=== PATIENT | female | born 1980 | race Caucasian/White ===

== ENCOUNTER 2016-06-19 23:43 | Emergency (ER) | payer OTHER ==
[~2016-06-19] VITALS: Ht 165.1 cm; Wt 99.8 kg
[~2016-06-19 23:43] MED LIST: AMBIEN10 M1 PO; AMBIEN10 MG PO; AMBIEN5 MG; ERY PO; FIORICET 325 MG1 TA1 PO; SUDAFED60 MG PO; VALIUM5 M1; XANAX0.5 M1 PO; [UNRECOGNIZED DRUG - REMARK]
[2016-06-19 23:49] VITALS: BP 125/81
--- NOTE | 2016-06-20 00:13 | NUR ---
Patient to OF2
--- NOTE | 2016-06-20 00:14 | NUR ---
PATIENT PRESENTS TO ED WITH NUMBNESS AND TWITCHING X 1 DAY . PT STATES SHE HAS HX OF MIGRAINE AND TAKE TOPAMAX FOR 100MG AND SPEECH IMPEDIMENT. PT DENIES N/V/D; SKIN IS PINK/WARM/DRY; AAOX4 WITH EVEN AND STEADY GAIT; LUNGS CLEAR BL; HR EVEN AND REGULAR; PT DENIES ANY FEVER, CP, SOB, OR COUGH AT THIS TIME; PATIENT STATES PAIN OF 9/10 AT THIS TIME; VSS; PATIENT POSITIONED FOR COMFORT; HOB ELEVATED; BEDRAILS UP X2; BED DOWN. ER MD MADE AWARE OF PT STATUS.
--- NOTE | 2016-06-20 00:25 | NUR ---
Patient being evaluated by physician DR CUNNINGHAM at bedside.
[2016-06-20 01:21] VITALS: BP 117/79
--- NOTE | 2016-06-20 01:21 | NUR ---
Patient discharged with v/s stable. Written and verbal after care instructions given and explained. Patient verbalized understanding. Ambulatory with steady gait. All questions addressed prior to discharge. Advised to follow up with PMD.
== END 2016-06-20 01:21 | disposition home or self-care (01) ==
LOC: MED 23:43
DX: F41.9 Anxiety disorder, unspecified (principal); G43.909 Migraine, unspecified, not intractable, without status migrainosus; Z88.5 Allergy status to narcotic agent

== ENCOUNTER 2017-03-06 08:57 | Emergency (ER) | payer OTHER ==
[~2017-03-06] VITALS: Ht 165.1 cm; Wt 99.6 kg
[~2017-03-06 08:57] MED LIST changes: -AMBIEN10 M1 PO; -AMBIEN10 MG PO; -AMBIEN5 MG; -ERY PO; -FIORICET 325 MG1 TA1 PO; -SUDAFED60 MG PO; -VALIUM5 M1; -XANAX0.5 M1 PO; +ZOLP10TA1 PO
[2017-03-06 09:19] VITALS: BP 124/92
--- NOTE | 2017-03-06 09:27 | NUR ---
PATIENT TO BED 12 AT THIS TIME.
--- NOTE | 2017-03-06 09:30 | NUR ---
36/F REFERRED BY PMD WITH C/O BODY/BACK ACHE, HEADACHE 10/10, PRODUCTIVE COUGH GREEN PLEGM X 4 DAYS WITH VOMITING TODAY X 1; HX; HEART MURMUR, MIGRAINE, R ANKLE SURGERY , C SECTION X 2. SKIN IS PINK/WARM/DRY; AAOX4 WITH EVEN AND STEADY GAIT; LUNGS CONGESTED BL; PATIENT STATES PAIN OF 10/10 AT THIS TIME; PATIENT POSITIONED FOR COMFORT; HOB ELEVATED; BEDRAILS UP X2; BED DOWN. ER MD MADE AWARE OF PT STATUS.
--- NOTE | 2017-03-06 09:30 | NUR ---
Note lori in EDM - 03/06/17 at 0959 by MED1 36/F REFERRED BY PMD WITH C/O BODY/BACK ACHE, HEADACHE 12/17, PRODUCTIVE COUGH GREEN PLEGM X 4 DAYS WITH VOMITING TODAY X 1; EPIDURAL 15 YEARS AGO.HX; HEART MURMUR, MIGRAINE
--- NOTE | 2017-03-06 09:46 | NUR ---
Patient being evaluated by DR MCCABE at bedside.
--- NOTE | 2017-03-06 10:09 | NUR ---
Patient discharged with v/s stable. Written and verbal after care instructions given and explained. Patient alert, oriented and verbalized understanding of instructions. Ambulatory with steady gait. All questions addressed prior to discharge. ID band removed. Patient advised to follow up with PMD. Rx of PROMETHAZINE & TRAMADOL given. Patient educated on indication of medication including possible reaction and side effects. Opportunity to ask questions provided and answered.
[2017-03-06 10:10] VITALS: BP 119/87
== END 2017-03-06 10:09 | disposition home or self-care (01) ==
LOC: MED 08:57
DX: J06.9 Acute upper respiratory infection, unspecified (principal); R03.0 Elevated blood-pressure reading, without diagnosis of hypertension; Z88.5 Allergy status to narcotic agent
CPT/HCPCS: 99283

== ENCOUNTER 2018-05-05 14:39 | Emergency (ER) | payer OTHER ==
[~2018-05-05] VITALS: Ht 165.1 cm; Wt 102.1 kg
[2018-05-05 15:13] VITALS: BP 126/85
--- NOTE | 2018-05-05 15:51 | NUR ---
PATIENT PRESENTS TO ED WITH C/O COUGH >1 MONTH; SEEN BY PMD AND RX ANTIHISTAMINE, SUDAFED PT ADDS INTERMITTENT SHARP ANTERIOR CHEST WALL PAIN RADIATING TO RIGHT UPPER BACK UNPROVOKED LASTING FOR MINUTES SELF RELIEVED >1 MONTH DENIES SOB, DENIES PEDAL EDEMA DENIES N/V/D; SKIN IS PINK/WARM/DRY; AAOX4 WITH EVEN AND STEADY GAIT; LUNGS CLEAR BL; HR EVEN AND REGULAR; PT DENIES ANY FEVER, SOB AT THIS TIME; PATIENT STATES PAIN OF 8/10 AT THIS TIME; VSS; PATIENT POSITIONED FOR COMFORT; HOB ELEVATED; BEDRAILS UP X2; BED DOWN. ER MD MADE AWARE OF PT STATUS.
[2018-05-05] MEDS ORDERED: KETOROLAC 30 MG/ML VIAL IM ONE (16:30)
[2018-05-05] MEDS ORDERED: DEXAMETHASONE 10 MG/ML VIAL IM ONE (16:30)
--- NOTE | 2018-05-05 17:07 | NUR ---
Patient discharged with v/s stable. Written and verbal after care instructions given and explained. Patient alert, oriented and verbalized understanding of instructions. Ambulatory with steady gait. All questions addressed prior to discharge. ID band removed. Patient advised to follow up with PMD. Rx of albuterol/naproxen/promethazine given. Patient educated on indication of medication including possible reaction and side effects. Opportunity to ask questions provided and answered.
[2018-05-05 17:08] VITALS: BP 127/81
== END 2018-05-05 17:07 | disposition home or self-care (01) ==
LOC: MED 14:39
DX: M94.0 Chondrocostal junction syndrome [Tietze] (principal); J40 Bronchitis, not specified as acute or chronic; F41.9 Anxiety disorder, unspecified; Z88.5 Allergy status to narcotic agent; Z79.899 Other long term (current) drug therapy
CPT/HCPCS: 71045; 81002; 81025; 93005; 96372; 99283; J1100; J1885; Q0092

== ENCOUNTER 2018-06-02 12:43 | Emergency (ER) | payer OTHER ==
[~2018-06-02] VITALS: Ht 165.1 cm; Wt 99.8 kg
[2018-06-02 12:46] VITALS: BP 115/72
--- NOTE | 2018-06-02 12:54 | NUR ---
PT AMB TO BED 3
--- NOTE | 2018-06-02 13:02 | NUR ---
PT PRESENTED TO THE ED WITH THE CHIEF C/O BLISTER AND REDNESS ON LEFT LOWER LEG S/P BUG BITE FOR 4 DAYS. REDNESS NOTED ON SITE, WARM AND HARD TO TOUCH. NO DRAINAGE. PT DENIES ANY FEVER. DENIES ANY OTHER PROBLEM AT THIS TIME. STATES FEELING OF DISCOMFORT ON LEFT LOWER LEG. DENIES PAIN AT THIS TIME. ER MD AWARE.
[2018-06-02 13:41] VITALS: BP 110/72
== END 2018-06-02 13:43 | disposition home or self-care (01) ==
LOC: MED 12:43
DX: R21 Rash and other nonspecific skin eruption (principal); Z88.5 Allergy status to narcotic agent; Z79.899 Other long term (current) drug therapy
CPT/HCPCS: 99281

== ENCOUNTER 2018-09-05 09:36 | Emergency (ER) | payer OTHER ==
[~2018-09-05] VITALS: Ht 165.1 cm; Wt 85.4 kg
[2018-09-05 09:40] VITALS: BP 132/92
--- NOTE | 2018-09-05 09:45 | NUR ---
PATIENT AMBULATED TO BED 9.
--- NOTE | 2018-09-05 09:55 | NUR ---
PT BIB SELF FOR RASH ON LT HAND AND EYELIDS SINCE FRIDAY. PT REPORTS SHARP PAIN IN RT EYELID AT 9/10 THAT INCREASES WITH ITCHING. PT DENIES N/V/D OR FEVER. DENIES USING NEW DETERGENTS, NEW FOODS OR BEING AROUND ANY UNUASUAL PLANTS. NO RESPIRATORY DISTRESS, AIRWAY PATENT, RR EVEN, NON-LABORED, AND BREATH SOUNDS CLEAR. PT SAW PCP AND RECIEVED HYDROCORTISONE OINTMENT AND NEOMYC-POLYMODEC. VSS. ER TO SEE PT. MEDHX:HEART MURMOR
[2018-09-05 11:20] VITALS: BP 132/92
== END 2018-09-05 11:02 | disposition home or self-care (01) ==
LOC: MED 09:36
DX: R21 Rash and other nonspecific skin eruption (principal)
CPT/HCPCS: 99281

== ENCOUNTER 2018-11-30 18:19 | Emergency (ER) | payer OTHER ==
--- NOTE | 2018-11-30 18:38 | NUR ---
CALLED PT NAME IN ER LOBBY AND OUTSIDE, NO ANSWER
--- NOTE | 2018-11-30 18:46 | NUR ---
CALLED PT NAME IN LOBBY NO ANSWER
--- NOTE | 2018-11-30 18:54 | NUR ---
CALLED PT NAME IN LOBBY NO ANSWER
--- NOTE | 2018-11-30 18:56 | NUR ---
PATIENT LEFT WITHOUT BEING SEEN BY DR. BROOKS. NO FURTHER CARE PROVIDED FOR PATIENT.
== END 2018-11-30 18:36 | disposition left against medical advice (07) ==
LOC: MED 18:19
DX: Z53.21 Procedure and treatment not carried out due to patient leaving prior to being seen by health care provider (principal)

== ENCOUNTER 2019-10-30 13:58 | Emergency (ER) | payer SELFPAY ==
[~2019-10-30] VITALS: Ht 165.1 cm; Wt 78.5 kg
[2019-10-30 14:23] VITALS: BP 133/86
--- NOTE | 2019-10-30 14:33 | NUR ---
PT AMB TO BED 8.
--- NOTE | 2019-10-30 14:33 | NUR ---
DR ARREAGA AT BEDSIDE EVALUATING PT.
[2019-10-30] MEDS ORDERED: KETOROLAC 30 MG/ML VIAL IM ONE (14:35)
[2019-10-30] MEDS ORDERED: SUMAtriptan succinate 25 MG TAB PO ONE (14:35)
--- NOTE | 2019-10-30 14:50 | NUR ---
C/O NAUSEA, HEADACHE X 1 WEEK.PT AOX4 AFIBRILE , AMBULATORY WITH STEADY GAIT , PINK PALPEBRAL , ANICTERIC SCLERA , SCE , FLAT SOFT ABDOMEN . MED HX: MIGRAINE, GASTRIC BY PASS, LEG LEG SURGERY, C SECTION
[2019-10-30] MEDS ORDERED: MORPHINE SULFATE 4 MG/ML SYR IVP ONE (15:20)
[2019-10-30] MEDS ORDERED: NACL 0.9% 1,000 ML IV ONE (15:20)
--- NOTE | 2019-10-30 16:06 | NUR ---
dr pinto informed and aware regarding pt c/o left facial tingling sensation.
--- NOTE | 2019-10-30 16:20 | NUR ---
pt to ct scan via wheelchair.
--- NOTE | 2019-10-30 16:35 | NUR ---
pt back from ct scan via wheelchair
--- NOTE | 2019-10-30 16:45 | NUR ---
dr pinto at bedside reevaluating pt.
[2019-10-30 16:53] VITALS: BP 110/74
--- NOTE | 2019-10-30 16:54 | NUR ---
Patient discharged with v/s stable. Written and verbal after care instructions given and explained regarding migraine headache. Patient alert, oriented and verbalized understanding of instructions. Ambulatory with steady gait. All questions addressed prior to discharge. ID band removed. Patient advised to follow up with PMD. Rx of ibuprfen and imitrex given. Patient educated on indication of medication including possible reaction and side effects. Opportunity to ask questions provided and answered.
== END 2019-10-30 16:54 | disposition home or self-care (01) ==
LOC: MED 13:58
DX: G43.909 Migraine, unspecified, not intractable, without status migrainosus (principal); I51.89 Other ill-defined heart diseases; Z88.6 Allergy status to analgesic agent; Z98.84 Bariatric surgery status; Z79.899 Other long term (current) drug therapy
CPT/HCPCS: 70450; 96361; 96372; 96374; 99284; J1885; J2270; J7030

== ENCOUNTER 2020-03-11 15:08 | Emergency (ER) | payer MEDICAID, OTHER ==
[~2020-03-11] VITALS: Ht 165.1 cm; Wt 59.0 kg
[2020-03-11 15:10] VITALS: BP 120/86
--- NOTE | 2020-03-11 15:20 | NUR ---
39 Y/O FEMALE BIB SELF, PATIENT STATES A FEW HOURS AGO SHE GOT A SUDDEN SHARP PAIN IN HER LEFT ABDOMEN THAT RADIATED TO HER LEFT CHEST/SHOULDER/FACE. STATES SHE IS FEELING TINGLING ON THE LEFT SIDE OF HER FACE. PAIN IS 9/10. DENIES ANY N/V/D. DENIES ANY SOB, COUGH OR FLU LIKE SYMPTOMS PATIENT STATES SHE RECENTLY FOUND OUT SHE HAD TWO HEART MURMURS. NO PMH ALLERGIES: CODEINE
[2020-03-11] MEDS ORDERED: ALUMINUM HYD/MAG/SIMETHICONE 30 ML UDC PO ONE (15:25)
[2020-03-11 15:45] LABS: BASOPHILS # (AUTO) 0.1 K/uL (0.00-0.22); BASOPHILS % (AUTO) 0.9 % (0.0-2.0); EOSINOPHILS # (AUTO) 0.2 K/uL (0-0.4); EOSINOPHILS % (AUTO) 1.9 % (0.0-4.0); HEMATOCRIT 41.7 % (36-48); HEMOGLOBIN 14.5 g/dL (12.0-16.0); LYMPHOCYTES # (AUTO) 2.4 K/uL (2.5-16.5); LYMPHOCYTES % (AUTO) 26.5 % (20.5-51.1); MEAN CORPUSCULAR HEMOGLOBIN 30 pg (27-31); MEAN CORPUSCULAR HGB CONC 35 g/dL (33-37); MEAN CORPUSCULAR VOLUME 86.3 fL (80-94); MONOCYTES # (AUTO) 0.7 K/uL (0.8-1.0); MONOCYTES % (AUTO) 8.1 % (1.7-9.3); NEUTROPHILS # (AUTO) 5.7 K/uL (1.8-7.7); NEUTROPHILS % (AUTO) 62.6 % (42.2-75.2); PLATELET COUNT (AUTO) 245 K/uL (140-450); RED BLOOD CELL COUNT(AUTO) 4.83 MIL/uL (4.20-5.40); RED CELL DISTRIBUTION WIDTH 13.3 % (11.6-13.7); WHITE BLOOD COUNT (AUTO) 9.1 K/uL (4.8-10.8)
--- NOTE | 2020-03-11 15:47 | NUR ---
PT TAKEN TO XRAY VIA WHEELCHAIR
[2020-03-11 16:43] LABS: ANION GAP 15.1 (8-16); CARBON DIOXIDE 25.7 mmol/L (21-32); CREATININE 0.8 mg/dL (0.6-1.3); POTASSIUM 3.8 mmol/L (3.5-5.1)
[2020-03-11 17:07] VITALS: BP 120/86
[2020-03-11 17:20] LABS: BILIRUBIN,DIRECT 0.1 mg/dL (0.0-0.3); TOTAL BILIRUBIN 0.3 mg/dL (0.0-1.0)
== END 2020-03-11 17:07 | disposition home or self-care (01) ==
LOC: MED 15:08
DX: R10.32 Left lower quadrant pain (principal); R53.83 Other fatigue; R20.0 Anesthesia of skin
CPT/HCPCS: 36415; 71045; 80048; 80076; 81002; 81025; 83690; 84484; 85025; 93005; 99285

== ENCOUNTER 2020-09-04 11:28 | Emergency (ER) | payer OTHER ==
[~2020-09-04] VITALS: Ht 165.1 cm; Wt 68.0 kg
[2020-09-04 11:47] VITALS: BP 117/78
--- NOTE | 2020-09-04 11:51 | NUR ---
PT TO AWAIT IN LOBBY
--- NOTE | 2020-09-04 13:00 | NUR ---
Patient ambulated to bed 2. RN evaluating the patient at bedside.
--- NOTE | 2020-09-04 13:01 | NUR ---
40 y/o F with c/c headache x 2 days. Patient states hx of migraines, acute onset yesterday at 5PM that worsen today. Patient reports Motrin 800mg with minor relief. States associated lightheadness, dizziness, chills x 1 day. Patient states headache 10/10, bilateral temporal, throbbing/constant, radiating down head. Patient denies fever, N/V, dysuria, fever, back pain, SOB. LMP: 01/2021; depo shot. VSS. Bed locked in lowest position, side rails x 1. Lights dimmed for comfort. PMH: Migraines, insomnia Meds: Denies Allergies: Codeine Sx: Gastric sleeve 2 years ago
--- NOTE | 2020-09-04 13:01 | NUR ---
APOORVA Cagle is evaluating the patient at bedside.
[2020-09-04] MEDS ORDERED: NACL 0.9% 1,000 ML IV ONE (13:10)
[2020-09-04] MEDS ORDERED: diphenhydrAMINE 50 MG/ML VIAL IVP ONE (13:10)
[2020-09-04] MEDS ORDERED: METOCLOPRAMIDE 10 MG/2 ML INJ VIAL IVP ONE (13:10)
[2020-09-04] MEDS ORDERED: KETOROLAC 30 MG/ML VIAL IVP ONE (13:10)
--- NOTE | 2020-09-04 13:25 | NUR ---
Blood sample collected, handed to CPT Divina at ER Bedside.
[2020-09-04 13:40] LABS: BASOPHILS # (AUTO) 0.1 K/uL (0.00-0.22); BASOPHILS % (AUTO) 0.8 % (0.0-2.0); EOSINOPHILS # (AUTO) 0.1 K/uL (0-0.4); EOSINOPHILS % (AUTO) 0.9 % (0.0-4.0); HEMATOCRIT 43.4 % (36-48); HEMOGLOBIN 15.2 g/dL (12.0-16.0); LYMPHOCYTES # (AUTO) 2.5 K/uL (2.5-16.5); LYMPHOCYTES % (AUTO) 29.1 % (20.5-51.1); MEAN CORPUSCULAR HEMOGLOBIN 31 pg (27-31); MEAN CORPUSCULAR HGB CONC 35 g/dL (33-37); MEAN CORPUSCULAR VOLUME 87.4 fL (80-94); MONOCYTES # (AUTO) 0.7 K/uL (0.8-1.0); MONOCYTES % (AUTO) 7.8 % (1.7-9.3); NEUTROPHILS # (AUTO) 5.3 K/uL (1.8-7.7); NEUTROPHILS % (AUTO) 61.4 % (42.2-75.2); PLATELET COUNT (AUTO) 242 K/uL (140-450); RED BLOOD CELL COUNT(AUTO) 4.97 MIL/uL (4.20-5.40); RED CELL DISTRIBUTION WIDTH 12.8 % (11.6-13.7); WHITE BLOOD COUNT (AUTO) 8.7 K/uL (4.8-10.8)
--- NOTE | 2020-09-04 13:46 | NUR ---
Pt states minor relief to pain, rates 7/10. Denies nausea or dizziness; states positive relief after Reglan and Benadryl IVP.
[2020-09-04 14:02] LABS: ANION GAP 13.6 (8-16); CREATININE 0.7 mg/dL (0.6-1.3); POTASSIUM 3.6 mmol/L (3.5-5.1); TOTAL BILIRUBIN 0.5 mg/dL (0.0-1.0)
[2020-09-04] MEDS ORDERED: CEPH-588 PO (14:11)
[2020-09-04] MEDS ORDERED: NAPR-54 PO (14:11)
[2020-09-04 14:35] VITALS: BP 117/78
--- NOTE | 2020-09-04 14:35 | NUR ---
Patient discharged with v/s stable. Written and verbal after care instructions given and explained. Patient alert, oriented and verbalized understanding of instructions. Ambulatory with steady gait. All questions addressed prior to discharge. ID band removed. IV Discontiued. Patient advised to follow up with PMD. Rx of KEFLEX AND NAPROSYN given. Patient educated on indication of medication including possible reaction and side effects. Opportunity to ask questions provided and answered.
== END 2020-09-04 14:35 | disposition home or self-care (01) ==
LOC: MED 11:28
DX: G43.909 Migraine, unspecified, not intractable, without status migrainosus (principal); N39.0 Urinary tract infection, site not specified; Z88.5 Allergy status to narcotic agent; Z79.899 Other long term (current) drug therapy; Z98.84 Bariatric surgery status
CPT/HCPCS: 36415; 80053; 81002; 81025; 85025; 96361; 96374; 96375; 99284; J1200; J1885; J2765; J7030

== ENCOUNTER 2021-05-09 16:53 | Emergency (ER) | payer OTHER ==
[~2021-05-09] VITALS: Ht 165.1 cm; Wt 63.0 kg
[~2021-05-09 16:53] MED LIST changes: +CEPH-588 PO; +NAPR-54 PO
[2021-05-09 17:01] VITALS: BP 137/77
--- NOTE | 2021-05-09 17:30 | NUR ---
PATIENT AMBULATED TO BED 8
--- NOTE | 2021-05-09 17:33 | NUR ---
PATIENT PLACED ON WHITE WASHER
--- NOTE | 2021-05-09 17:38 | NUR ---
IV 18G R AC ESTABLISHED, COLLECTED BLOOD AND AMBULATED TO LAB
--- NOTE | 2021-05-09 17:38 | NUR ---
40/F BIB SELF, AA&OX4, AMBULATORY W/ STEADY GAIT. PRESENTS TO ED WITH C/O INTERMITTENT CHEST PAIN 9/10 AND SOB X2 WEEKS. PAIN RADIATES FROM CHEST TO R SIDE OF NECK. DENIES USE OF MEDICATION FOR PAIN RELIEF, -N/V/D, FEVER, RECENT EXPOSURE TO COVID. PATIENT REPORTS A FALL LAST WEEK, DENIES TRAUMA OR INJURY. PATIENT REPORTS DRINKING APPROX. 6 CAFFEINATED DRINKS WEEKLY, NO CAFFEINE SENSITIVITY NOTED. PMH: HEART MURMUR, PREVIOUS DIAGNOSIS OF PNEUMONIA AND BRONCHITIS MEDS: DENIES ALLERGIES: CODEINE
--- NOTE | 2021-05-09 17:40 | NUR ---
RADIOLOGY AT BEDSIDE
[2021-05-09 17:54] LABS: BASOPHILS # (AUTO) 0.1 K/uL (0.00-0.22); BASOPHILS % (AUTO) 0.6 % (0.0-2.0); EOSINOPHILS # (AUTO) 0.1 K/uL (0-0.4); EOSINOPHILS % (AUTO) 0.9 % (0.0-4.0); HEMATOCRIT 42.5 % (36-48); LYMPHOCYTES # (AUTO) 3.3 K/uL (2.5-16.5); MEAN CORPUSCULAR HEMOGLOBIN 30 pg (27-31); MEAN CORPUSCULAR HGB CONC 35 g/dL (33-37); MEAN CORPUSCULAR VOLUME 84.7 fL (80-94); MONOCYTES # (AUTO) 0.7 K/uL (0.8-1.0); MONOCYTES % (AUTO) 7.2 % (1.7-9.3); NEUTROPHILS # (AUTO) 5.9 K/uL (1.8-7.7); NEUTROPHILS % (AUTO) 58.3 % (42.2-75.2); PLATELET COUNT (AUTO) 282 K/uL (140-450); RED BLOOD CELL COUNT(AUTO) 5.02 MIL/uL (4.20-5.40); RED CELL DISTRIBUTION WIDTH 12.9 % (11.6-13.7); WHITE BLOOD COUNT (AUTO) 10.1 K/uL (4.8-10.8)
--- NOTE | 2021-05-09 17:57 | NUR ---
DR REDMAN EVALUATING PATIENT AT BEDSIDE.
[2021-05-09 18:25] LABS: ALBUMIN 4.1 g/dL (3.4-5.0); ANION GAP 13.6 (8-16); CARBON DIOXIDE 25.4 mmol/L (21-32); CREATININE 0.7 mg/dL (0.6-1.3); TOTAL BILIRUBIN 0.6 mg/dL (0.0-1.0)
[2021-05-09] MEDS ORDERED: POTASSIUM CHLORIDE 10 MEQ TABER PO SCH (18:44)
--- NOTE | 2021-05-09 19:03 | NUR ---
NOVEL AND STREP CULTURES COLLECTED AND WALKED TO LAB
--- NOTE | 2021-05-09 19:20 | NUR ---
Pt report given to HELIO VARNER. Transfer of care at this time.
[2021-05-09] MEDS ORDERED: CODE-107 PO ×2 (19:39→19:40)
[2021-05-09 20:00] VITALS: BP 125/56
--- NOTE | 2021-05-09 20:00 | NUR ---
Patient discharged with v/s stable. Written and verbal after care instructions given and explained. Patient alert, oriented and verbalized understanding of instructions. Ambulatory with steady gait. All questions addressed prior to discharge. ID band removed. Patient advised to follow up with PMD. Opportunity to ask questions provided and answered.
== END 2021-05-09 20:00 | disposition home or self-care (01) ==
LOC: MED 16:53
DX: J20.9 Acute bronchitis, unspecified (principal); Z88.5 Allergy status to narcotic agent; Z79.899 Other long term (current) drug therapy; Z20.822 Contact with and (suspected) exposure to COVID-19
CPT/HCPCS: 36415; 71045; 80053; 81002; 81025; 83690; 83880; 84484; 85025; 87081; 93005; 99285; Q0092; U0003

== ENCOUNTER 2021-07-15 19:37 | Emergency (ER) | payer OTHER ==
[~2021-07-15] VITALS: Ht 165.1 cm; Wt 61.2 kg
[~2021-07-15 19:37] MED LIST changes: +CODE-107 PO
[2021-07-15 19:40] VITALS: BP 139/77
--- NOTE | 2021-07-15 21:10 | NUR ---
Patient taken to radiology dept via wheel chair.
--- NOTE | 2021-07-15 21:32 | NUR ---
Dr. Fam at triage to exam patient.
[2021-07-15] MEDS ORDERED: KETOROLAC 60 MG/2 ML VIAL IM ONE (22:05)
[2021-07-15] MEDS ORDERED: HYDROcodone/APAP 5/325 MG 1 TAB TAB PO ONE (22:05)
[2021-07-15] MEDS ORDERED: [UNRECOGNIZED DRUG - CODE] MC (22:10)
[2021-07-15] MEDS ORDERED: IBUP-2218 PO (22:10)
[2021-07-15 22:41] VITALS: BP 129/82
--- NOTE | 2021-07-15 22:41 | NUR ---
Patient discharged with v/s stable. Written and verbal after care instructions given and explained. Patient alert, oriented and verbalized understanding of instructions. Ambulatory with steady gait. All questions addressed prior to discharge. ID band removed. Patient advised to follow up with PMD. Rx of Ibuprofen and Spirometers ([place] safety trainer) given. Patient educated on indication of medication including possible reaction and side effects. Opportunity to ask questions provided and answered.
== END 2021-07-15 22:41 | disposition home or self-care (01) ==
LOC: MED 19:37
DX: R07.81 Pleurodynia (principal); R07.89 Other chest pain; Z85.41 Personal history of malignant neoplasm of cervix uteri; Z98.890 Other specified postprocedural states; Z79.899 Other long term (current) drug therapy; Z79.1 Long term (current) use of non-steroidal anti-inflammatories (NSAID); Z79.891 Long term (current) use of opiate analgesic; Z79.2 Long term (current) use of antibiotics; Z88.5 Allergy status to narcotic agent
CPT/HCPCS: 71101; 93005; 96372; 99283; J1885; Q0163

== ENCOUNTER 2021-07-30 14:02 | Emergency (ER) | payer OTHER ==
[~2021-07-30] VITALS: Ht 165.1 cm; Wt 63.5 kg
[~2021-07-30 14:02] MED LIST changes: +IBUP-2218 PO; +[UNRECOGNIZED DRUG - CODE] MC
[2021-07-30 14:38] VITALS: BP 113/57
--- NOTE | 2021-07-30 16:04 | NUR ---
md delacruz at bedside for pt evaluation
--- NOTE | 2021-07-30 16:07 | NUR ---
41 y/o female, c/o pelvic pain that started 4 days ago with diarrhea and feeling lightheaded. denies nausea, vomiting, diarrhea. skin is pink/warm/dry. a&o x4 with even and steady gait. lungs clear bl, heart rate even and regular. pt denies dysuria, hematuria, urinary frequency or retention, or anyone sick in the household with the same symptoms. pt denies any fever, cp, sob, or cough at this time. pt states pain is 10/10 at this time. patient positioned for comfort. hob elevated. bed down. ermd made aware of pt. pmh: cervical cancer, gastric sleeve allergy: codeine med: motrin 800mg in AM
[2021-07-30] MEDS: KETOROLAC 30 MG/ML VIAL IM ONE (16:15)
--- NOTE | 2021-07-30 16:23 | NUR ---
Ultrasound at bedside.
[2021-07-30] MEDS ORDERED: NAPR-54 PO (17:33)
[2021-07-30] MEDS ORDERED: ACET-8386 PO (17:33)
--- NOTE | 2021-07-30 18:00 | NUR ---
Patient discharged with v/s stable. Written and verbal after care instructions given and explained. Patient alert, oriented and verbalized understanding of instructions. Ambulatory with steady gait. All questions addressed prior to discharge. ID band removed. Patient advised to follow up with PMD. Rx of naproxen, hydrocodone (sent) given. Patient educated on indication of medication including possible reaction and side effects. Opportunity to ask questions provided and answered.
[2021-07-30 18:08] VITALS: BP 122/66
[2021-07-30] MEDS ORDERED: ACET-5629 PO (18:58)
== END 2021-07-30 18:00 | disposition home or self-care (01) ==
LOC: MED 14:02
DX: R10.2 Pelvic and perineal pain (principal); R19.7 Diarrhea, unspecified; Z85.41 Personal history of malignant neoplasm of cervix uteri; F12.90 Cannabis use, unspecified, uncomplicated; Z79.899 Other long term (current) drug therapy; Z79.1 Long term (current) use of non-steroidal anti-inflammatories (NSAID); Z79.891 Long term (current) use of opiate analgesic; Z79.2 Long term (current) use of antibiotics; Z88.5 Allergy status to narcotic agent
CPT/HCPCS: 76856; 81002; 81025; 93976; 96372; 99284; J1885; Q0092

== ENCOUNTER 2021-08-16 02:40 | Emergency (ER) | payer OTHER ==
[~2021-08-16] VITALS: Ht 165.1 cm; Wt 63.5 kg
[~2021-08-16 02:40] MED LIST changes: +ACET-5629 PO
[2021-08-16 02:45] VITALS: BP 104/70
[2021-08-16] MEDS ORDERED: KETOROLAC 60 MG/2 ML VIAL IM ONE (02:55)
[2021-08-16] MEDS ORDERED: ONDANSETRON 4 MG ODT PO ONE (02:55)
--- NOTE | 2021-08-16 02:58 | NUR ---
Patient ambulated to bed 11.
--- NOTE | 2021-08-16 03:38 | NUR ---
Dr. Arce examining patient.
--- NOTE | 2021-08-16 03:43 | NUR ---
41 Y/O FEMALE BIBS FROM HOME, C/O pelvic pain x 3 days. Patient reported, had pelvic pain, lower abdominal pain, nausea, vomiting, no diarrhea, no fever. no vaginal discharge. A/OX4, GCS-15; UNLABORED BREATHING, SPEAKING IN FULL SENTENCES; AMBULATORY WITH STEADY GAIT. PT SEATED IN BED WITH HOB RAISED, BED IN LOWEST POSITION AND RAILS UP X2. PMHx: DENIES
[2021-08-16] MEDS ORDERED: MORPHINE SULFATE 4 MG/ML SYR IM ONE (03:45)
[2021-08-16] MEDS ORDERED: IBUP-2213 PO (04:05)
[2021-08-16] MEDS ORDERED: ACET-8386 PO (04:05)
[2021-08-16] MEDS ORDERED: ONDA8TAB87 PO (04:05)
[2021-08-16 04:50] VITALS: BP 104/70
--- NOTE | 2021-08-16 04:50 | NUR ---
Patient discharged with v/s stable. Written and verbal after care instructions given and explained. Patient alert, oriented and verbalized understanding of instructions. Ambulatory with steady gait. All questions addressed prior to discharge. ID band removed. Patient advised to follow up with PMD. Rx of ZOFRAN, NORCO, AND IBUPROFEN (5-325), AND given. Patient educated on indication of medication including possible reaction and side effects. Opportunity to ask questions provided and answered. A/OX4, VSS, UNLABORED BREATHING, AMBULATORY, AND CALM DEMEANOR. PT RECIEVED UBER RIDE HOME.
== END 2021-08-16 04:50 | disposition home or self-care (01) ==
LOC: MED 02:40
DX: R10.30 Lower abdominal pain, unspecified (principal); R11.2 Nausea with vomiting, unspecified; R68.83 Chills (without fever); F12.90 Cannabis use, unspecified, uncomplicated; Z98.890 Other specified postprocedural states; Z85.41 Personal history of malignant neoplasm of cervix uteri; Z98.84 Bariatric surgery status; Z88.5 Allergy status to narcotic agent; Z79.899 Other long term (current) drug therapy
CPT/HCPCS: 81002; 81025; 96372; 99284; J1885; J2270; Q0162

== ENCOUNTER 2022-01-17 18:41 | Emergency (ER) | payer OTHER ==
[~2022-01-17] VITALS: Ht 165.1 cm; Wt 55.8 kg
[~2022-01-17 18:41] MED LIST changes: +ACET-8386 PO; +IBUP-2213 PO; +ONDA8TAB87 PO
[2022-01-17 18:53] VITALS: BP 137/86
--- NOTE | 2022-01-17 18:56 | NUR ---
PT TO BED #6
--- NOTE | 2022-01-17 19:35 | NUR ---
Patient resting in bed, A/Ox4, chest rise and fall symmetrical, no s/s of distress, no c/o pain, patient on monitor.
--- NOTE | 2022-01-17 20:05 | NUR ---
X-RAY AT BEDSIDE.
--- NOTE | 2022-01-17 20:40 | NUR ---
Patient resting in bed, A/Ox4, chest rise and fall symmetrical, no s/s of distress, no c/o pain. Addendum: 01/17/22 at 2301 by [email or web address] Patient resting in bed, A/Ox4, chest rise and fall symmetrical, no s/s of distress, no c/o pain, patient on monitor.
--- NOTE | 2022-01-17 21:30 | NUR ---
Patient resting in bed, A/Ox4, chest rise and fall symmetrical, no s/s of distress, no c/o pain, patient on monitor.
--- NOTE | 2022-01-17 21:45 | NUR ---
ER physician verbally informed that patient stated chest pain is 10/10. ER physician Dr. Pradhan verbalized understannding.
--- NOTE | 2022-01-17 21:50 | NUR ---
ER physician verbally informed that patient stated chest pain is 10/10. ER physician Dr. Pradhan verbalized understannding.
--- NOTE | 2022-01-17 21:55 | NUR ---
ER physician verbally informed that patient stated chest pain is 10/10. ER physician Dr. Pradhan verbalized understannding.
--- NOTE | 2022-01-17 22:02 | NUR ---
ER physician, Dr. Pradhan, at bedside with patient.
[2022-01-17 22:05] VITALS: BP 121/64
== END 2022-01-17 22:02 | disposition home or self-care (01) ==
LOC: MED 18:41
DX: B34.9 Viral infection, unspecified (principal); Z88.5 Allergy status to narcotic agent; Z79.899 Other long term (current) drug therapy; Z85.41 Personal history of malignant neoplasm of cervix uteri; Z98.84 Bariatric surgery status
CPT/HCPCS: 71045; 93005; 99283; Q0092

== ENCOUNTER 2022-08-14 09:25 | Emergency (ER) | payer OTHER ==
[~2022-08-14] VITALS: Ht 165.1 cm; Wt 58.5 kg
[~2022-08-14 09:25] MED LIST changes: -ACET-8386 PO; +ACET-8905 PO
[2022-08-14 09:38] VITALS: BP 116/61
[2022-08-14] MEDS ORDERED: diphenhydrAMINE 50 MG/ML VIAL IVP ONE (10:25)
[2022-08-14] MEDS ORDERED: PROCHLORPERAZINE 10 MG/2 ML VIAL IVP ONE (10:25)
[2022-08-14] MEDS ORDERED: KETOROLAC 15 MG/ML VIAL IVP ONE (10:25)
--- NOTE | 2022-08-14 10:51 | NUR ---
PT AMBULATED TO BED 02
[2022-08-14 11:14] LABS: BASOPHILS % (AUTO) 0.7 % (0.0-2.0); EOSINOPHILS # (AUTO) 0.1 K/uL (0-0.4); HEMATOCRIT 41.8 % (36-48); HEMOGLOBIN 14.6 g/dL (12.0-16.0); LYMPHOCYTES # (AUTO) 2.1 K/uL (2.5-16.5); LYMPHOCYTES % (AUTO) 31.1 % (20.5-51.1); MEAN CORPUSCULAR HEMOGLOBIN 30 pg (27-31); MEAN CORPUSCULAR HGB CONC 35 g/dL (33-37); MEAN CORPUSCULAR VOLUME 86.6 fL (80-94); MONOCYTES # (AUTO) 0.5 K/uL (0.8-1.0); MONOCYTES % (AUTO) 7.3 % (1.7-9.3); NEUTROPHILS % (AUTO) 59.9 % (42.2-75.2); PLATELET COUNT (AUTO) 197 K/uL (140-450); RED BLOOD CELL COUNT(AUTO) 4.82 MIL/uL (4.20-5.40); RED CELL DISTRIBUTION WIDTH 12.8 % (11.6-13.7); WHITE BLOOD COUNT (AUTO) 6.7 K/uL (4.8-10.8)
[2022-08-14 11:32] LABS: ALBUMIN 3.9 g/dL (3.4-5.0); ANION GAP 11.7 (8-16); CARBON DIOXIDE 30.7 mmol/L (21-32); CREATININE 0.6 mg/dL (0.6-1.3); POTASSIUM 4.4 mmol/L (3.5-5.1); TOTAL BILIRUBIN 0.5 mg/dL (0.0-1.0)
[2022-08-14 12:04] LABS: APPEARANCE,URINE CLEAR (CLEAR); BILIRUBIN,URINE NEGATIVE (NEGATIVE); BLOOD, URINE 1+ (NEGATIVE); COLOR,URINE YELLOW (YELLOW); LEUKOCYTE ESTERASE ,URINE 1+ (NEGATIVE); NITRITE, URINE NEGATIVE (NEGATIVE); UGLUCOSE NEGATIVE (NEGATIVE)
[2022-08-14] MEDS ORDERED: KETOROLAC 15 MG/ML VIAL ONE (12:09)
[2022-08-14] MEDS ORDERED: PROCHLORPERAZINE 10 MG/2 ML VIAL ONE (12:09)
[2022-08-14] MEDS ORDERED: diphenhydrAMINE 50 MG/ML VIAL ONE (12:09)
[2022-08-14] MEDS ORDERED: BEN10 PO (13:44)
[2022-08-14] MEDS ORDERED: ONDA-188 PO (13:44)
[2022-08-14] MEDS ORDERED: IBUP-2213 PO (13:44)
== END 2022-08-14 14:25 | disposition home or self-care (01) ==
LOC: MED 09:25
DX: G43.909 Migraine, unspecified, not intractable, without status migrainosus (principal); Z20.822 Contact with and (suspected) exposure to COVID-19; R11.2 Nausea with vomiting, unspecified; R19.7 Diarrhea, unspecified; Z79.899 Other long term (current) drug therapy
CPT/HCPCS: 36415; 80053; 81001; 81025; 83690; 85025; 85651; 86140; 87086; 87426; 87804; 96374; 96375; 99284; J0780; J1200; J1885

== ENCOUNTER 2022-10-19 14:37 | Emergency (ER) | payer OTHER ==
[~2022-10-19] VITALS: Ht 165.1 cm; Wt 58.5 kg
[~2022-10-19 14:37] MED LIST changes: +BEN10 PO; +ONDA-188 PO
[2022-10-19 14:44] VITALS: BP 125/76; PULSE 68; RESP 14; TEMP 97.8; O2SAT 100
[2022-10-19 15:00] VITALS: TEMP 97.8
[2022-10-19 15:18] LABS: BASOPHILS # (AUTO) 0.1 K/uL (0.00-0.22); BASOPHILS % (AUTO) 0.7 % (0.0-2.0); EOSINOPHILS # (AUTO) 0.1 K/uL (0-0.4); EOSINOPHILS % (AUTO) 1.2 % (0.0-4.0); HEMATOCRIT 39.3 % (36-48); HEMOGLOBIN 13.6 g/dL (12.0-16.0); LYMPHOCYTES # (AUTO) 2.1 K/uL (2.5-16.5); LYMPHOCYTES % (AUTO) 30.3 % (20.5-51.1); MEAN CORPUSCULAR HEMOGLOBIN 30 pg (27-31); MEAN CORPUSCULAR HGB CONC 35 g/dL (33-37); MEAN CORPUSCULAR VOLUME 87.7 fL (80-94); MONOCYTES # (AUTO) 0.5 K/uL (0.8-1.0); MONOCYTES % (AUTO) 7.7 % (1.7-9.3); NEUTROPHILS # (AUTO) 4.2 K/uL (1.8-7.7); NEUTROPHILS % (AUTO) 60.1 % (42.2-75.2); PLATELET COUNT (AUTO) 187 K/uL (140-450); RED BLOOD CELL COUNT(AUTO) 4.49 MIL/uL (4.20-5.40); RED CELL DISTRIBUTION WIDTH 12.3 % (11.6-13.7); WHITE BLOOD COUNT (AUTO) 7.1 K/uL (4.8-10.8)
[2022-10-19 15:37] LABS: ALANINE AMINOTRANSFERASE 19 U/L (12-78); ALBUMIN 3.4 g/dL (3.4-5.0); ALKALINE PHOSPHATASE 86 U/L (50-136); ANION GAP 10.9 (8-16); ASPARTATE AMINOTRANSFERASE 19 U/L (15-37); CALCIUM 8.4 mg/dL (8.5-10.1); CARBON DIOXIDE 28.9 mmol/L (21-32); CHLORIDE 106 mmol/L (98-107); CREATININE 0.8 mg/dL (0.6-1.3); GFR ARICAN-AMERICAN 100 mL/min (>90); GFR NON ARICAN-AMERICAN 83 mL/min (>90); GLUCOSE 91 mg/dL (74-106); LIPASE 105 U/L (73-393); POTASSIUM 3.8 mmol/L (3.5-5.1); SODIUM SERUM 142 mmol/L (136-145); TOTAL BILIRUBIN 0.3 mg/dL (0.0-1.0); TOTAL PROTEIN, SERUM 6.4 g/dL (6.4-8.2); UREA NITROGEN, BLOOD 10 mg/dL (7-18)
[2022-10-19] MEDS ORDERED: LIDOCAINE 5% 1 EA PATCH TP ONE (15:40)
[2022-10-19] MEDS ORDERED: KETOROLAC 30 MG/ML VIAL IM ONE (15:40)
[2022-10-19] MEDS ORDERED: ACET-10509 PO (16:18)
[2022-10-19] MEDS ORDERED: LID5T TP (16:18)
[2022-10-19 16:44] VITALS: BP 116/65; PULSE 74; RESP 17; O2SAT 98
== END 2022-10-19 16:45 | disposition home or self-care (01) ==
LOC: MED 14:37
DX: R07.89 Other chest pain (principal); Z88.5 Allergy status to narcotic agent; Z79.899 Other long term (current) drug therapy; Z85.41 Personal history of malignant neoplasm of cervix uteri
CPT/HCPCS: 36415; 71045; 80053; 81025; 83690; 84484; 85025; 96372; 99284; J1885; Q0092

== ENCOUNTER 2022-11-24 21:34 | Emergency (ER) | payer OTHER ==
[~2022-11-24] VITALS: Ht 165.1 cm; Wt 54.4 kg
[~2022-11-24 21:34] MED LIST changes: +ACET-10509 PO; +LID5T TP
[2022-11-24 22:13] VITALS: BP 138/74; PULSE 72; RESP 16; TEMP 97.4; O2SAT 100
[2022-11-24 22:37] VITALS: BP 134/76; PULSE 69; RESP 17; O2SAT 99
[2022-11-24] MEDS ORDERED: KETOROLAC 30 MG/ML VIAL IM ONE (23:35)
[2022-11-25] MEDS ORDERED: ACET-11169 PO (00:02)
[2022-11-25] MEDS ORDERED: NAPR-1704 PO (00:02)
== END 2022-11-25 00:22 | disposition home or self-care (01) ==
LOC: MED 21:34
DX: M72.2 Plantar fascial fibromatosis (principal); Z88.5 Allergy status to narcotic agent; Z79.899 Other long term (current) drug therapy
CPT/HCPCS: 73630; 96372; 99283; J1885; Q0092

== ENCOUNTER 2023-04-30 15:39 | Emergency (ER) | payer OTHER ==
[~2023-04-30] VITALS: Ht 160 cm; Wt 63.5 kg
[~2023-04-30 15:39] MED LIST changes: +ACET-11169 PO; +NAPR-1704 PO
[2023-04-30 15:59] VITALS: BP 121/83; PULSE 65; RESP 20; TEMP 98.3; O2SAT 99
[2023-04-30 16:21] VITALS: O2SAT 99
[2023-04-30] MEDS: diazePAM 5 MG TAB PO ONE (16:58)
[2023-04-30 17:12] LABS: BILIRUBIN,URINE NEGATIVE (NEGATIVE); BLOOD, URINE 2+ (NEGATIVE); COLOR,URINE YELLOW (YELLOW); LEUKOCYTE ESTERASE ,URINE 2+ (NEGATIVE); NITRITE, URINE NEGATIVE (NEGATIVE); PH,URINE 6.5 (5.0-9.0); PROTEIN,URINE 1+ (NEGATIVE); UGLUCOSE NEGATIVE (NEGATIVE); UROBILINOGEN,URINE 0.2 EU/dL (0.2 - 1)
[2023-04-30 17:16] LABS: APPEARANCE,URINE HAZY (CLEAR)
[2023-04-30 17:26] LABS: BACTERIA,URINE FEW /HPF (None Seen); RBC,URINE 11-20 (MOD) /HPF (0-5); SQUAMOUS EPITHELIAL CELL,UR 0-3 (FEW) /LPF (0-3 (FEW))
[2023-04-30 17:27] LABS: MUCUS,URINE 1+ /LPF (None Seen)
[2023-04-30] MEDS ORDERED: METH-1681 PO (18:18)
[2023-04-30] MEDS ORDERED: CEPH-588 PO (18:18)
[2023-05-02] MEDS ORDERED: CIPR500T4 PO (12:04)
== END 2023-04-30 18:33 | disposition home or self-care (01) ==
LOC: MED 15:39
DX: S93.401A Sprain of unspecified ligament of right ankle, initial encounter (principal); S80.11XA Contusion of right lower leg, initial encounter; N30.01 Acute cystitis with hematuria; R10.2 Pelvic and perineal pain; Z79.899 Other long term (current) drug therapy; Z98.890 Other specified postprocedural states; Z88.5 Allergy status to narcotic agent; W01.0XXA Fall on same level from slipping, tripping and stumbling without subsequent striking against object, initial encounter; Y92.89 Other specified places as the place of occurrence of the external cause; Y93.89 Activity, other specified; Y99.8 Other external cause status
CPT/HCPCS: 73610; 73630; 81001; 81025; 87086; 99284

== ENCOUNTER 2023-08-08 15:24 | Emergency (ER) | payer OTHER ==
[~2023-08-08] VITALS: Ht 160 cm; Wt 68.2 kg
[~2023-08-08 15:24] MED LIST changes: +CIPR500T4 PO; +METH-1681 PO; +NAPR-337 PO; -NAPR-54 PO
[2023-08-08 15:33] VITALS: BP 112/58; PULSE 77; RESP 18; TEMP 98.1; O2SAT 99
[2023-08-08] MEDS: ACETAMINOPHEN EXTRA STRENGTH 500 MG TAB PO ONE (16:17)
[2023-08-08] MEDS: TETRACAINE HCL/PF 0.5% OPTH 4 ML BTL OP ONE (16:17)
[2023-08-08] MEDS: FLUORESCEIN OPTH STRIP 1 MG OP ONE (16:17)
== END 2023-08-08 16:28 | disposition home or self-care (01) ==
LOC: MED 15:24
DX: H11.32 Conjunctival hemorrhage, left eye (principal); G43.909 Migraine, unspecified, not intractable, without status migrainosus; H53.142 Visual discomfort, left eye; Z88.5 Allergy status to narcotic agent; Z79.899 Other long term (current) drug therapy
CPT/HCPCS: 99284

== ENCOUNTER 2023-10-19 09:46 | Emergency (ER) | payer OTHER ==
[~2023-10-19] VITALS: Ht 160 cm; Wt 67.6 kg
[2023-10-19 10:10] VITALS: BP 112/53; PULSE 78; RESP 24; TEMP 98; O2SAT 99
[2023-10-19] MEDS: KETOROLAC 30 MG/ML VIAL IM ONE (11:00)
[2023-10-19] MEDS: ACETAMINOPHEN 325 MG TAB PO ONE (11:00)
[2023-10-19] MEDS: LIDOCAINE 5% 1 EA PATCH TP ONE (11:16)
[2023-10-19] MEDS ORDERED: ONDA-188 SL (11:28)
[2023-10-19] MEDS ORDERED: IBUP-2218 PO (11:30)
[2023-10-19] MEDS ORDERED: ACET-10509 PO (11:30)
[2023-10-19 11:50] VITALS: BP 112/53; PULSE 78; RESP 18; TEMP 98; O2SAT 99
== END 2023-10-19 11:54 | disposition home or self-care (01) ==
LOC: MED 09:46
DX: S20.212A Contusion of left front wall of thorax, initial encounter (principal); Z85.41 Personal history of malignant neoplasm of cervix uteri; Z79.899 Other long term (current) drug therapy; Z88.5 Allergy status to narcotic agent; W01.198A Fall on same level from slipping, tripping and stumbling with subsequent striking against other object, initial encounter; Y92.89 Other specified places as the place of occurrence of the external cause; Y93.89 Activity, other specified; Y99.8 Other external cause status
CPT/HCPCS: 71101; 96372; 99283; J1885

== ENCOUNTER 2023-10-29 09:13 | Emergency (ER) | payer OTHER ==
[~2023-10-29] VITALS: Ht 160 cm; Wt 67.3 kg
[~2023-10-29 09:13] MED LIST changes: -ACET-10509 PO; +ACET500T99 PO
[2023-10-29 09:19] VITALS: BP 117/57; PULSE 67; RESP 18; TEMP 97.4; O2SAT 100
[2023-10-29 09:40] VITALS: BP 117/57; PULSE 67; RESP 18; TEMP 97.4; O2SAT 100
== END 2023-10-29 09:40 | disposition home or self-care (01) ==
LOC: MED 09:13
DX: D23.21 Other benign neoplasm of skin of right ear and external auricular canal (principal); R42 Dizziness and giddiness; Z98.84 Bariatric surgery status; Z98.890 Other specified postprocedural states; Z85.41 Personal history of malignant neoplasm of cervix uteri; Z79.1 Long term (current) use of non-steroidal anti-inflammatories (NSAID); Z79.2 Long term (current) use of antibiotics; Z79.899 Other long term (current) drug therapy; Z88.5 Allergy status to narcotic agent
CPT/HCPCS: 99281